=== PATIENT | female | born 1935 | race Caucasian/White ===

== ENCOUNTER 2017-10-31 11:42 | Observation (INO) | payer MEDICARE, MEDICAID ==
--- NOTE | 2017-10-31 13:06 | C.PDOC ---
History Of Present Illness Patient is a 82 y/o F, with gerd, htn, hypercholesterol, pacemakler, on lasix 40mg qd, presenting from PMD office. Patient reports that she went to her PMD today because she has had a cough x 4 days with clear sputum, with worsening orthopnea, generalized myalgias, and was getting regular checkup today when she mentioned worsening orthopnea and intermittent shortness of beath, chest pain, and was sent to ED to evaluate for chf. Reports compliance with medication. Denies fever. Denies abdominal pain, vomiting/nausea, diarrhea/constipation, dysuria. PMD: Dr. Lana Angel ([phone]) Time Seen by Provider: 10/31/17 12:37 Chief Complaint (Nursing): Shortness Of Breath Past Medical History Vital Signs: Last Vital Signs Temp 98.5 F 10/31/17 14:40 Pulse 110 H 10/31/17 14:40 Resp 20 10/31/17 14:40 BP 111/54 L 10/31/17 14:42 Pulse Ox 100 10/31/17 14:40 - Medical History PMH: Gastritis, HTN Surgical History: Pacemaker (lt. sub-clavian) Family History: States: Unknown Family Hx - Social History Hx Alcohol Use: No Hx Substance Use: No - Immunization History Hx Tetanus Toxoid Vaccination: No Hx Influenza Vaccination: Yes Hx Pneumococcal Vaccination: Yes Review Of Systems Except As Marked, All Systems Reviewed And Found Negative. Constitutional: Negative for: Fever, Chills Cardiovascular: Positive for: Orthopnea. Negative for: Chest Pain, Palpitations , Edema, Light Headedness Respiratory: Positive for: Cough, Shortness of Breath, SOB with Excertion. Negative for: Wheezing Gastrointestinal: Negative for: Nausea, Vomiting, Abdominal Pain, Diarrhea, Constipation Musculoskeletal: Negative for: Neck Pain Neurological: Negative for: Weakness, Numbness, Seizures, Altered Mental Status , Headache Physical Exam - Physical Exam Appears: Well, Non-toxic, No Acute Distress, Other (speaking in complete sentences, no tachypnea) Skin: Normal Color, Warm, Dry Head: Atraumatic, Normacephalic Eye(s): bilateral: Normal Inspection, PERRL, EOMI Neck: Supple Chest: Symmetrical Cardiovascular: Rhythm Regular Respiratory: No Rales, No Rhonchi, No Stridor, Wheezing Gastrointestinal/Abdominal: Soft, No Tenderness, No Mass Back: Normal Inspection, No CVA Tenderness Extremity: Normal ROM, No Pedal Edema Neurological/Psych: Oriented x3, Normal Speech Gait: Steady ED Course And Treatment - Laboratory Results Result Diagrams: 10/31/17 13:13 10/31/17 13:13 O2 Sat by Pulse Oximetry: 99 Medical Decision Making Medical Decision Making: Symptoms consistent with viral uri with chf exacerbation. EKG shows paced rhythm at 60bpm. Chest xray shows cardiomegaly but negative for infiltrate or consolidation. Influenza negative. Trop x 1 negative. BNP elevated. Duonebs, aspirin and lasix given. Due to elevated bnp, shortness of breath, with orthopnea and chest pain will transfer to tele observation under Dr. Angel. Disposition - Disposition Disposition: HOSPITALIZED Disposition Time: 13:58 Condition: FAIR - Clinical Impression Clinical Impression: Respiratory tract infection, Chronic congestive heart failure, Orthopnea
[2017-10-31] MEDS ORDERED: Albuterol-Ipratrop 3 mg / 0.5 (3 ml) UD INH STA ×2 (13:14→16:31)
[2017-10-31] MEDS ORDERED: Albuterol-Ipratrop 3 mg / 0.5 (3 ml) UD ONE ×2 (13:23→16:41)
[2017-10-31 13:24] LABS: BASO # 0.1 K/uL (0.0-0.2); BASO % 1.1 % (0.0-2.0); EOS # 0.1 K/uL (0.0-0.7); EOS % 2.1 % (0.0-4.0); HEMATOCRIT 47.6 % (34.0-47.0); LYMPH # 0.8 K/uL (1.0-4.3); LYMPH % 11.8 % (20.0-40.0); MEAN CELL VOLUME 90.1 fL (81.0-99.0); MEAN CORPUSCULAR HEMOGLOBIN 28.3 pg (27.0-31.0); MEAN CORPUSCULAR HGB CONC 31.5 g/dL (33.0-37.0); MEAN PLATELET VOLUME 8.9 fL (7.2-11.7); MONO # 0.7 K/uL (0.0-0.8); MONO % 9.6 % (0.0-10.0); NRBC % 0.1 % (0.0-2.0); RED CELL DISTRIBUTION WIDTH 15.8 % (11.5-14.5)
[2017-10-31] MEDS ORDERED: Albuterol 0.083% Inhal Sol (2.5 mg/3 mL) UD ONE (13:26)
[2017-10-31 13:33] LABS: ALKALINE PHOSPHATASE 61 U/L (38-126); ALT/SGPT 47 U/L (9-52); AST/SGOT 39 U/L (14-36); BILIRUBIN,TOTAL 1.1 mg/dL (0.2-1.3); BLOOD UREA NITROGEN 13 mg/dL (7-17); CARBON DIOXIDE 27 mmol/L (22-30); CHLORIDE 100 mmol/L (98-107); GFR AFRICAN-AMERICAN > 60; GLUCOSE,RANDOM 107 mg/dL (65-105); POTASSIUM 4.1 mmol/L (3.6-5.2); SODIUM 134 mmol/L (132-148); TOTAL PROTEIN 8.9 g/dL (6.3-8.3)
[2017-10-31 13:34] LABS: ALB/GLOB RATIO 0.9 (1.0-2.1)
--- NOTE | 2017-10-31 13:51 | RAD ---
PROCEDURE: CHEST RADIOGRAPH, 1 VIEW HISTORY: SOB COMPARISON: No prior study available for comparison FINDINGS: LUNGS: Clear. PLEURA: No pneumothorax or pleural fluid seen. CARDIOVASCULAR: Heart is markedly enlarged. In situ bipolar pacemaker OSSEOUS STRUCTURES: No significant abnormalities. VISUALIZED UPPER ABDOMEN: Normal. OTHER FINDINGS: None. IMPRESSION: No acute infiltrates. Marked cardiomegaly.
[2017-10-31 14:06] LABS: INR 1.3
--- NOTE | 2017-10-31 18:44 | CP.PCM.HP ---
History of Present Illness - History of Present Illness History of Present Illness: An 82 year old came for evaluation for coughing and shortness of breath. She has been coughing a lot of white sputum since 3 or 4 days ago. Last night she could not lie flat and slept on a chair (orthopnea). She was seen by a doctor at a day care center and prescribed her 500 mg of levaquin and she has been taking it once a day for the last four days. She has a history of pacemaker and CHF. She has had a pacemaker for a found arrhythmia when she was having an operation for right wrist fracture at [facility]. At home she takes 40 mg of lasix and 5 mg of lisinopril. Her other medicines include 20 mg of simvastatin and [address] She denies leg swelling. Present on Admission - Present on Admission Any Indicators Present on Admission: No History of DVT/PE: No Urinary Catheter: No Decubitus Ulcer Present: No Review of Systems - EENT Eyes: absent: Blurred Vision - Cardiovascular Cardiovascular: Orthopnea. absent: Chest Pain - Respiratory Respiratory: Cough, Dyspnea on Exertion, Wheezing - Gastrointestinal Gastrointestinal: absent: Nausea, Vomiting - Genitourinary Genitourinary: absent: Change in Urinary Stream Past Patient History - Past Social History Smoking Status: Never Smoked - CARDIAC Hx Hypertension: Yes Hx Pacemaker: Yes (lt. sub-clavian) - RENAL Hx Renal Failure: Yes - GASTROINTESTINAL Hx Gastritis: Yes - PSYCHIATRIC Hx Substance Use: No - SURGICAL HISTORY Hx Hysterectomy: Yes Other/Comment: Pacemaker insertion,2008 - ANESTHESIA Hx Anesthesia: No Hx Anesthesia Reactions: No Meds Allergies/Adverse Reactions: Allergies Allergy/AdvReac Type Severity Reaction Status Date / Time ibuprofen [From Motrin] Allergy RASH Verified 10/31/17 11:56 Physical Exam - Constitutional Appears: No Acute Distress - Respiratory Exam Respiratory Exam: Clear to Auscultation Bilateral, Rhonchi - Cardiovascular Exam Cardiovascular Exam: REGULAR RHYTHM. absent: Systolic Murmur - GI/Abdominal Exam GI & Abdominal Exam: Normal Bowel Sounds, Soft. absent: Tenderness - Extremities Exam Extremities exam: Positive for: normal inspection. Negative for: pedal edema Results - Vital Signs Recent Vital Signs: Last Vital Signs Temp 97.9 F 10/31/17 18:10 Pulse 60 10/31/17 18:10 Resp 20 10/31/17 18:10 BP 125/71 10/31/17 18:10 Pulse Ox 97 10/31/17 18:10 - Labs Result Diagrams: 11/01/17 06:21 11/01/17 06:21 Labs: Laboratory Results - last 24 hr 10/31/17 10/31/17 10/31/17 12:38 13:13 13:13 WBC 7.0 RBC 5.29 H Hgb 15.0 Hct 47.6 H MCV 90.1 MCH 28.3 MCHC 31.5 L RDW 15.8 H Plt Count 411 H MPV 8.9 Neut % (Auto) 75.4 H Lymph % (Auto) 11.8 L [place] % (Auto) 9.6 Eos % (Auto) 2.1 Baso % (Auto) 1.1 Neut # 5.3 Lymph # 0.8 L [place] # 0.7 Eos # 0.1 Baso # 0.1 PT INR APTT Sodium 134 Potassium 4.1 Chloride 100 Carbon Dioxide 27 Anion Gap 11 BUN 13 Creatinine 0.7 Est GFR ( Amer) > 60 Est GFR (Non-Af Amer) > 60 Random Glucose 107 H Calcium 8.0 L Total Bilirubin 1.1 AST 39 H ALT 47 Alkaline Phosphatase 61 Troponin I 0.0160 NT-Pro-B Natriuret Pep 3420 H Total Protein 8.9 H Albumin 4.1 Globulin 4.8 H Albumin/Globulin Ratio 0.9 L Influenza Typ A,B (EIA) Negative for flu a/b 10/31/17 13:53 WBC RBC Hgb Hct MCV MCH MCHC RDW Plt Count MPV Neut % (Auto) Lymph % (Auto) [place] % (Auto) Eos % (Auto) Baso % (Auto) Neut # Lymph # [place] # Eos # Baso # PT 14.1 H INR 1.3 APTT 40 H Sodium Potassium Chloride Carbon Dioxide Anion Gap BUN Creatinine Est GFR ( Amer) Est GFR (Non-Af Amer) Random Glucose Calcium Total Bilirubin AST ALT Alkaline Phosphatase Troponin I NT-Pro-B Natriuret Pep Total Protein Albumin Globulin Albumin/Globulin Ratio Influenza Typ A,B (EIA) Assessment & Plan - Assessment and Plan (Free Text) Assessment: orthopnea pneumonia asthma R/O CHF exacerbation hypertension cardiomegaly Plan: iv lasix iv Rocephin cardiology consult telemetry observation - Date & Time Date: 10/31/17 Time: 18:47 Decision To Admit - Pt Status Changed To: Hospital Disposition Of: Observation - InPatient: Physician Admission Certification:: observation - . Bed Request Type: Telemetry Admitting Physician: Robert Angel
--- NOTE | 2017-10-31 18:53 | CP.PCM.CON ---
History of Present Illness - History of Present Illness History of Present Illness: 82 year old with reported CHF ? details was admitted with cough, orthopnea and leg edema, on diuretics. no CP, continue diuresis, check echo, prior hx of permanent pacer? Review of Systems - Review of Systems Systems not reviewed;Unavailable: Respiratory Distress, Language Barrier - Constitutional Constitutional: Anorexia, Weakness - EENT Eyes: absent: Discharge Ears: absent: Ear Discharge, Dizziness Nose/Mouth/Throat: absent: Epistaxis, Bleeding Gums - Cardiovascular Cardiovascular: Chest Pain, Dyspnea. absent: Acrocyanosis, Diaphoresis, Leg Edema, Palpitations, Syncope - Respiratory Respiratory: Cough, Dyspnea. absent: Hemoptysis - Gastrointestinal Gastrointestinal: absent: Abdominal Pain, Diarrhea, Vomiting - Genitourinary Genitourinary: absent: Change in Urinary Stream Past Patient History - Past Social History Smoking Status: Never Smoked - CARDIAC Hx Hypertension: Yes Hx Pacemaker: Yes (lt. sub-clavian) - RENAL Hx Renal Failure: Yes - GASTROINTESTINAL Hx Gastritis: Yes - PSYCHIATRIC Hx Substance Use: No - SURGICAL HISTORY Hx Hysterectomy: Yes Other/Comment: Pacemaker insertion,2008 - ANESTHESIA Hx Anesthesia: No Hx Anesthesia Reactions: No Meds Allergies/Adverse Reactions: Allergies Allergy/AdvReac Type Severity Reaction Status Date / Time ibuprofen [From Motrin] Allergy RASH Verified 10/31/17 11:56 - Medications Medications: Current Medications Albuterol/Ipratropium (Duoneb 3 Mg/0.5 Mg (3 Ml) Ud) 3 ml INH RQ6 [facility] Aspirin (Aspirin Chewable) 81 mg PO DAILY [facility] Enoxaparin Sodium (Lovenox) 40 mg SC DAILY [facility] Furosemide (Lasix) 40 mg IVP DAILY [facility] Ceftriaxone Sodium 1 gm/ (Sodium Chloride) 100 mls @ 100 mls/hr IVPB DAILY [facility] Lisinopril (Zestril) 10 mg PO DAILY [facility] Rosuvastatin Calcium (Crestor) 2.5 mg PO HS [facility] Physical Exam - Constitutional Appears: Toxic - Head Exam Head Exam: ATRAUMATIC, NORMOCEPHALIC - Eye Exam Eye Exam: EOMI - ENT Exam ENT Exam: Mucous Membranes Dry - Neck Exam Neck exam: Negative for: Lymphadenopathy, Thyromegaly - Respiratory Exam Respiratory Exam: Prolonged Expiratory Phase, Rhonchi, Wheezes - Cardiovascular Exam Cardiovascular Exam: REGULAR RHYTHM, Systolic Murmur - GI/Abdominal Exam GI & Abdominal Exam: Normal Bowel Sounds. absent: Organomegaly - Rectal Exam Rectal Exam: Deferred - Extremities Exam Extremities exam: Positive for: normal capillary refill. Negative for: calf tenderness - Neurological Exam Neurological exam: Alert - Psychiatric Exam Psychiatric exam: Anxious - Skin Skin Exam: Dry Results - Vital Signs Recent Vital Signs: Last Vital Signs Temp 97.9 F 10/31/17 18:10 Pulse 60 10/31/17 18:10 Resp 20 10/31/17 18:10 BP 125/71 10/31/17 18:10 Pulse Ox 97 10/31/17 18:10 - Labs Result Diagrams: 11/01/17 06:21 11/01/17 06:21 Labs: Laboratory Results - last 24 hr 10/31/17 10/31/17 10/31/17 12:38 13:13 13:13 WBC 7.0 RBC 5.29 H Hgb 15.0 Hct 47.6 H MCV 90.1 MCH 28.3 MCHC 31.5 L RDW 15.8 H Plt Count 411 H MPV 8.9 Neut % (Auto) 75.4 H Lymph % (Auto) 11.8 L [place] % (Auto) 9.6 Eos % (Auto) 2.1 Baso % (Auto) 1.1 Neut # 5.3 Lymph # 0.8 L [place] # 0.7 Eos # 0.1 Baso # 0.1 PT INR APTT Sodium 134 Potassium 4.1 Chloride 100 Carbon Dioxide 27 Anion Gap 11 BUN 13 Creatinine 0.7 Est GFR ( Amer) > 60 Est GFR (Non-Af Amer) > 60 Random Glucose 107 H Calcium 8.0 L Total Bilirubin 1.1 AST 39 H ALT 47 Alkaline Phosphatase 61 Troponin I 0.0160 NT-Pro-B Natriuret Pep 3420 H Total Protein 8.9 H Albumin 4.1 Globulin 4.8 H Albumin/Globulin Ratio 0.9 L Influenza Typ A,B (EIA) Negative for flu a/b 10/31/17 13:53 WBC RBC Hgb Hct MCV MCH MCHC RDW Plt Count MPV Neut % (Auto) Lymph % (Auto) [place] % (Auto) Eos % (Auto) Baso % (Auto) Neut # Lymph # [place] # Eos # Baso # PT 14.1 H INR 1.3 APTT 40 H Sodium Potassium Chloride Carbon Dioxide Anion Gap BUN Creatinine Est GFR ( Amer) Est GFR (Non-Af Amer) Random Glucose Calcium Total Bilirubin AST ALT Alkaline Phosphatase Troponin I NT-Pro-B Natriuret Pep Total Protein Albumin Globulin Albumin/Globulin Ratio Influenza Typ A,B (EIA) Assessment & Plan (1) Chronic congestive heart failure Status: Acute Comment: awaiting w/u observe with echo (2) Respiratory tract infection Status: Acute Comment: probable viral bronchitis
[2017-10-31] MEDS: Albuterol-Ipratrop 3 mg / 0.5 (3 ml) UD INH SCH (19:22)
[2017-10-31] MEDS ORDERED: Aritificial Tears (15ml) OU PRN (21:43)
[2017-10-31] MEDS: Rosuvastatin Calcium 2.5 mg Tab PO SCH (22:44)
[2017-11-01] MEDS: Albuterol-Ipratrop 3 mg / 0.5 (3 ml) UD INH SCH ×4 (02:03→20:04)
[2017-11-01 06:28] LABS: BASO # 0.1 K/uL (0.0-0.2); BASO % 1.4 % (0.0-2.0); EOS # 0.1 K/uL (0.0-0.7); EOS % 1.8 % (0.0-4.0); HEMATOCRIT 46.4 % (34.0-47.0); LYMPH # 1.1 K/uL (1.0-4.3); MEAN CELL VOLUME 88.8 fL (81.0-99.0); MEAN CORPUSCULAR HEMOGLOBIN 28.9 pg (27.0-31.0); MEAN CORPUSCULAR HGB CONC 32.6 g/dL (33.0-37.0); MEAN PLATELET VOLUME 8.7 fL (7.2-11.7); MONO # 0.7 K/uL (0.0-0.8); RED CELL DISTRIBUTION WIDTH 15.8 % (11.5-14.5); WHITE BLOOD COUNT 7.1 K/uL (4.8-10.8)
[2017-11-01 06:55] LABS: ALB/GLOB RATIO 1.3 (1.0-2.1); ALKALINE PHOSPHATASE 66 U/L (38-126); ALT/SGPT 38 U/L (9-52); AST/SGOT 37 U/L (14-36); BILIRUBIN,TOTAL 0.9 mg/dL (0.2-1.3); BLOOD UREA NITROGEN 17 mg/dL (7-17); CALCIUM 8.4 mg/dl (8.6-10.4); CARBON DIOXIDE 28 mmol/L (22-30); CHLORIDE 102 mmol/L (98-107); GFR AFRICAN-AMERICAN > 60; GLUCOSE,RANDOM 96 mg/dL (65-105); POTASSIUM 3.7 mmol/L (3.6-5.2); SODIUM 138 mmol/L (132-148); TOTAL PROTEIN 6.9 g/dL (6.3-8.3)
[2017-11-01] MEDS: Enoxaparin 40 mg Syringe SC SCH (09:32)
--- NOTE | 2017-11-01 15:37 | CP.PCM.PN ---
Subjective - Date & Time of Evaluation Date of Evaluation: 11/01/17 Time of Evaluation: 15:35 - Subjective Subjective: coughing with whitish sputum can not lie flat nasal pain Objective - Vital Signs/Intake and Output Vital Signs (last 24 hours): Temp Pulse Resp BP Pulse Ox 97.5 F L 60 20 149/80 96 11/01/17 07:00 11/01/17 08:00 11/01/17 07:00 11/01/17 09:33 11/01/17 07:00 - Medications Medications: Current Medications Acetaminophen (Tylenol 325mg Tab) 650 mg PO Q6 PRN PRN Reason: Pain, Mild (1-3) Albuterol/Ipratropium (Duoneb 3 Mg/0.5 Mg (3 Ml) Ud) 3 ml INH RQ6 [facility] Last Admin: 11/01/17 13:24 Dose: 3 ml Artificial Tears (Artificial Tears) 0 ml OU Q4H PRN PRN Reason: Dry eyes Last Admin: 10/31/17 22:43 Dose: 1 drop Aspirin (Aspirin Chewable) 81 mg PO DAILY [facility] Last Admin: 11/01/17 09:32 Dose: 81 mg Enoxaparin Sodium (Lovenox) 40 mg SC DAILY [facility] Last Admin: 11/01/17 09:32 Dose: 40 mg Furosemide (Lasix) 40 mg IVP DAILY [facility] Last Admin: 11/01/17 09:33 Dose: 40 mg Ceftriaxone Sodium 1 gm/ (Sodium Chloride) 100 mls @ 100 mls/hr IVPB Q24H [facility] Last Admin: 10/31/17 22:44 Dose: 100 mls/hr Lisinopril (Zestril) 10 mg PO DAILY [facility] Last Admin: 11/01/17 09:32 Dose: 10 mg Rosuvastatin Calcium (Crestor) 2.5 mg PO HS [facility] Last Admin: 10/31/17 22:44 Dose: 2.5 mg - Labs Labs: 11/01/17 06:21 11/01/17 06:21 PT 14.1 SECONDS (9.7-12.2) H 10/31/17 13:53 INR 1.3 10/31/17 13:53 APTT 40 SECONDS (21-34) H 10/31/17 13:53 - Constitutional Appears: No Acute Distress - Respiratory Exam Respiratory Exam: Wheezes - Cardiovascular Exam Cardiovascular Exam: REGULAR RHYTHM. absent: Murmur - GI/Abdominal Exam GI & Abdominal Exam: Soft. absent: Tenderness Assessment and Plan - Assessment and Plan (Free Text) Assessment: chronic CHF R/O asthma, bronchitis patient on iv fluid Plan: get 2D echo result continue respiratory treatment continue iv lasix follow up cardiology consult
[2017-11-01] MEDS: Mupirocin 2% Ointment (NASAL) NAS SCH (19:04)
--- NOTE | 2017-11-01 19:20 | CP.PCM.PN ---
Subjective - Date & Time of Evaluation Date of Evaluation: 11/01/17 Time of Evaluation: 15:00 - Subjective Subjective: still with respiratory distress, HR 60 no fever f/u with echo Objective - Vital Signs/Intake and Output Vital Signs (last 24 hours): Temp Pulse Resp BP Pulse Ox 97.9 F 60 20 123/68 96 11/01/17 16:00 11/01/17 16:00 11/01/17 16:00 11/01/17 16:00 11/01/17 16:00 - Medications Medications: Current Medications Acetaminophen (Tylenol 325mg Tab) 650 mg PO Q6 PRN PRN Reason: Pain, Mild (1-3) Albuterol/Ipratropium (Duoneb 3 Mg/0.5 Mg (3 Ml) Ud) 3 ml INH RQ6 [facility] Last Admin: 11/01/17 13:24 Dose: 3 ml Artificial Tears (Artificial Tears) 0 ml OU Q4H PRN PRN Reason: Dry eyes Last Admin: 10/31/17 22:43 Dose: 1 drop Aspirin (Aspirin Chewable) 81 mg PO DAILY [facility] Last Admin: 11/01/17 09:32 Dose: 81 mg Enoxaparin Sodium (Lovenox) 40 mg SC DAILY [facility] Last Admin: 11/01/17 09:32 Dose: 40 mg Furosemide (Lasix) 40 mg IVP DAILY [facility] Last Admin: 11/01/17 09:33 Dose: 40 mg Ceftriaxone Sodium 1 gm/ (Dextrose) 50 mls @ 100 mls/hr IVPB Q24H [facility] Lisinopril (Zestril) 10 mg PO DAILY [facility] Last Admin: 11/01/17 09:32 Dose: 10 mg Mupirocin (Bactroban 2% Nasal) 0.5 gm LEBRON BID [facility] Last Admin: 11/01/17 19:04 Dose: 0.5 gm Rosuvastatin Calcium (Crestor) 2.5 mg PO HS [facility] Last Admin: 10/31/17 22:44 Dose: 2.5 mg - Labs Labs: 11/01/17 06:21 11/01/17 06:21 PT 14.1 SECONDS (9.7-12.2) H 10/31/17 13:53 INR 1.3 10/31/17 13:53 APTT 40 SECONDS (21-34) H 12/15/17 13:53 - Constitutional Appears: Non-toxic - Head Exam Head Exam: ATRAUMATIC - Eye Exam Eye Exam: EOMI - ENT Exam ENT Exam: Mucous Membranes Moist - Neck Exam Neck Exam: absent: Lymphadenopathy, Thyromegaly - Respiratory Exam Respiratory Exam: Prolonged Expiratory Phase, Rhonchi - Cardiovascular Exam Cardiovascular Exam: REGULAR RHYTHM, Murmur - GI/Abdominal Exam GI & Abdominal Exam: Soft, Normal Bowel Sounds. absent: Organomegaly - Rectal Exam Rectal Exam: Deferred - Extremities Exam Extremities Exam: Normal Capillary Refill. absent: Calf Tenderness - Neurological Exam Neurological Exam: Alert - Psychiatric Exam Psychiatric exam: Normal Mood - Skin Skin Exam: Dry Assessment and Plan (1) Chronic congestive heart failure Status: Acute (2) Respiratory tract infection Status: Acute
--- NOTE | 2017-11-01 21:11 | CARD ---
APPROVED REPORT EXAM: Two-dimensional and M-mode echocardiogram with Doppler and color Doppler. Other Information Quality : GoodRhythm : NSR INDICATION Dyspnea Congestive Heart Failure M-Mode DIMENSIONS RVDd3.88 (2.1-3.2cm)Left Atrium (MM)5.27 (2.5-4.0cm) IVSd1.29 (0.7-1.1cm)Aortic Root2.89 (2.2-3.7cm) LVDd4.76 (4.0-5.6cm)Aortic Cusp Exc.1.64 (1.5-2.0cm) PWd1.29 (0.7-1.1cm)FS (%) 18 % LVDs3.90 (2.0-3.8cm)LVEF (%)37 (>50%) Aortic Valve AoV Peak Qlunfkdt616.9cm/[place] Peak GR.12mmHgAI P 1/2 [id number] Mitral Valve MV E Rrtpqsvi06.7cm/sMV A Fbhqthtu44.1cm/sE/A ratio3.0 TDI E/Lateral E'0.0E/Medial E'0.0 Tricuspid Valve TR Peak [id number]/sTR Peak Gr.[id number] LEFT VENTRICLE The left ventricle is normal size. There is normal left ventricular wall thickness. The systolic function is mildly to moderately impaired. RIGHT VENTRICLE The right ventricle is mildly dilated. ATRIA The left atrium is moderately dilated. The right atrium is moderately dilated. AORTIC VALVE There is trace to mild aortic regurgitation. MITRAL VALVE Mitral regurgitation is mild. TRICUSPID VALVE There is moderate tricuspid regurgitation. <Conclusion> Mild LV systolic dysfunction. Dilated LA. Dilated RA. Dilated RV. Mild AR. Mild MR. Moderate TR.
[2017-11-01] MEDS: Rosuvastatin Calcium 2.5 mg Tab PO SCH (21:21)
[2017-11-02] MEDS: Albuterol-Ipratrop 3 mg / 0.5 (3 ml) UD INH SCH ×5 (01:35→19:23)
[2017-11-02] MEDS: Enoxaparin 40 mg Syringe SC SCH (09:20)
[2017-11-02] MEDS: Mupirocin 2% Ointment (NASAL) NAS SCH ×2 (09:23→19:15)
--- NOTE | 2017-11-02 10:17 | CP.PCM.PN ---
Subjective - Date & Time of Evaluation Date of Evaluation: 11/02/17 Time of Evaluation: 10:15 - Subjective Subjective: still shortness of breath cough with a little thicker sputum can lie on the bed with a little less inclination Objective - Vital Signs/Intake and Output Vital Signs (last 24 hours): Temp Pulse Resp BP Pulse Ox 98.1 F 69 18 130/78 96 11/02/17 07:30 11/02/17 07:30 11/02/17 07:30 11/02/17 09:22 11/02/17 07:30 - Medications Medications: Current Medications Acetaminophen (Tylenol 325mg Tab) 650 mg PO Q6 PRN PRN Reason: Pain, Mild (1-3) Albuterol/Ipratropium (Duoneb 3 Mg/0.5 Mg (3 Ml) Ud) 3 ml INH RQ6 [facility] Last Admin: 11/02/17 07:16 Dose: Not Given Artificial Tears (Artificial Tears) 0 ml OU Q4H PRN PRN Reason: Dry eyes Last Admin: 10/31/17 22:43 Dose: 1 drop Aspirin (Aspirin Chewable) 81 mg PO DAILY [facility] Last Admin: 11/02/17 09:23 Dose: 81 mg Enoxaparin Sodium (Lovenox) 40 mg SC DAILY [facility] Last Admin: 11/02/17 09:20 Dose: 40 mg Furosemide (Lasix) 40 mg IVP DAILY [facility] Last Admin: 11/02/17 09:22 Dose: 40 mg Ceftriaxone Sodium 1 gm/ (Dextrose) 50 mls @ 100 mls/hr IVPB Q24H [facility] Last Admin: 11/01/17 21:36 Dose: 100 mls/hr Lisinopril (Zestril) 10 mg PO DAILY [facility] Last Admin: 11/02/17 09:23 Dose: 10 mg Mupirocin (Bactroban 2% Nasal) 0.5 gm [facility] Last Admin: 11/02/17 09:23 Dose: 0.5 gm Rosuvastatin Calcium (Crestor) 2.5 mg PO HS [facility] Last Admin: 11/01/17 21:21 Dose: 2.5 mg - Labs Labs: 11/01/17 06:21 11/01/17 06:21 PT 14.1 SECONDS (9.7-12.2) H 10/31/17 13:53 INR 1.3 10/31/17 13:53 APTT 40 SECONDS (21-34) H 10/31/17 13:53 - Constitutional Appears: No Acute Distress - Respiratory Exam Respiratory Exam: Wheezes - Cardiovascular Exam Cardiovascular Exam: REGULAR RHYTHM - GI/Abdominal Exam GI & Abdominal Exam: Soft. absent: Tenderness Assessment and Plan - Assessment and Plan (Free Text) Assessment: CHF exacerbation bronchitis 2D echo showed mildly impaired EF Plan: continue iv lasix sputum culture follow up labs in AM as per cardiology
--- NOTE | 2017-11-02 13:22 | CP.PCM.PN ---
Subjective - Date & Time of Evaluation Date of Evaluation: 11/02/17 Time of Evaluation: 12:00 - Subjective Subjective: still with cough sob, echo with ef 50-55% not as reported . mild MR, AI, PAH, mild percardial effusion, stop lasix Objective - Vital Signs/Intake and Output Vital Signs (last 24 hours): Temp Pulse Resp BP Pulse Ox 98.1 F 69 18 130/78 96 11/02/17 07:30 11/02/17 07:30 11/02/17 07:30 11/02/17 09:22 11/02/17 07:30 - Medications Medications: Current Medications Acetaminophen (Tylenol 325mg Tab) 650 mg PO Q6 PRN PRN Reason: Pain, Mild (1-3) Albuterol/Ipratropium (Duoneb 3 Mg/0.5 Mg (3 Ml) Ud) 3 ml INH RQ6 [facility] Last Admin: 11/02/17 07:16 Dose: Not Given Artificial Tears (Artificial Tears) 0 ml OU Q4H PRN PRN Reason: Dry eyes Last Admin: 10/31/17 22:43 Dose: 1 drop Aspirin (Aspirin Chewable) 81 mg PO DAILY [facility] Last Admin: 11/02/17 09:23 Dose: 81 mg Enoxaparin Sodium (Lovenox) 40 mg SC DAILY [facility] Last Admin: 11/02/17 09:20 Dose: 40 mg Furosemide (Lasix) 40 mg IVP DAILY [facility] Last Admin: 11/02/17 09:22 Dose: 40 mg Ceftriaxone Sodium 1 gm/ (Dextrose) 50 mls @ 100 mls/hr IVPB Q24H [facility] Last Admin: 11/01/17 21:36 Dose: 100 mls/hr Lisinopril (Zestril) 10 mg PO DAILY [facility] Last Admin: 11/02/17 09:23 Dose: 10 mg Mupirocin (Bactroban 2% Nasal) 0.5 gm [place]BRON BID [facility] Last Admin: 11/02/17 09:23 Dose: 0.5 gm Rosuvastatin Calcium (Crestor) 2.5 mg PO HS [facility] Last Admin: 11/01/17 21:21 Dose: 2.5 mg - Labs Labs: 11/01/17 06:21 11/01/17 06:21 PT 14.1 SECONDS (9.7-12.2) H 10/31/17 13:53 INR 1.3 10/31/17 13:53 APTT 40 SECONDS (21-34) H 10/31/17 13:53 - Constitutional Appears: Toxic - Head Exam Head Exam: ATRAUMATIC - Eye Exam Eye Exam: EOMI - ENT Exam ENT Exam: Mucous Membranes Dry - Neck Exam Neck Exam: absent: Lymphadenopathy, Thyromegaly - Respiratory Exam Respiratory Exam: Prolonged Expiratory Phase, Rhonchi - Cardiovascular Exam Cardiovascular Exam: REGULAR RHYTHM, Murmur - GI/Abdominal Exam GI & Abdominal Exam: Soft, Normal Bowel Sounds. absent: Organomegaly - Rectal Exam Rectal Exam: Deferred - Extremities Exam Extremities Exam: Normal Capillary Refill. absent: Calf Tenderness - Neurological Exam Neurological Exam: Alert - Psychiatric Exam Psychiatric exam: Anxious - Skin Skin Exam: Dry Assessment and Plan (1) Chronic congestive heart failure Status: Acute (2) Respiratory tract infection Status: Acute (3) Dehydration Assessment & Plan: stop lasix Status: Acute
[2017-11-02] MEDS ORDERED: Pantoprazole 40 mg EC Tab PO STA (16:27)
[2017-11-02] MEDS: Rosuvastatin Calcium 2.5 mg Tab PO SCH (21:57)
[2017-11-03 01:17] VITALS: RESP 20
[2017-11-03] MEDS: Albuterol-Ipratrop 3 mg / 0.5 (3 ml) UD INH SCH ×4 (01:40→19:24)
[2017-11-03 07:02] LABS: BASO # 0.1 K/uL (0.0-0.2); BASO % 1.3 % (0.0-2.0); EOS # 0.2 K/uL (0.0-0.7); EOS % 2.8 % (0.0-4.0); HEMATOCRIT 48.4 % (34.0-47.0); LYMPH # 1.5 K/uL (1.0-4.3); LYMPH % 19.9 % (20.0-40.0); MEAN CORPUSCULAR HEMOGLOBIN 29.3 pg (27.0-31.0); MEAN PLATELET VOLUME 8.7 fL (7.2-11.7); MONO # 0.7 K/uL (0.0-0.8); MONO % 8.8 % (0.0-10.0); RED CELL DISTRIBUTION WIDTH 15.4 % (11.5-14.5); WHITE BLOOD COUNT 7.7 K/uL (4.8-10.8)
[2017-11-03 07:37] LABS: BLOOD UREA NITROGEN 24 mg/dL (7-17); CALCIUM 8.2 mg/dl (8.6-10.4); CARBON DIOXIDE 28 mmol/L (22-30); CHLORIDE 100 mmol/L (98-107); GFR AFRICAN-AMERICAN > 60; GLUCOSE,RANDOM 127 mg/dL (65-105); POTASSIUM 3.7 mmol/L (3.6-5.2); SODIUM 136 mmol/L (132-148)
[2017-11-03] MEDS ORDERED: Pantoprazole 40 mg EC Tab PO SCH (10:00)
[2017-11-03] MEDS: Enoxaparin 40 mg Syringe SC SCH (10:38)
[2017-11-03] MEDS: Mupirocin 2% Ointment (NASAL) NAS SCH (10:38)
[2017-11-03 17:16] VITALS: BP 127/73; PULSE 60; TEMP 97.4; O2SAT 98
--- NOTE | 2017-11-03 18:26 | CP.PCM.PN ---
Subjective - Date & Time of Evaluation Date of Evaluation: 11/03/17 Time of Evaluation: 18:24 - Subjective Subjective: still coughing can lie down better afebrile Objective - Vital Signs/Intake and Output Vital Signs (last 24 hours): Temp Pulse Resp BP Pulse Ox 97.4 F L 60 20 127/73 98 11/03/17 17:15 11/03/17 17:15 11/03/17 17:15 11/03/17 17:15 11/03/17 17:15 Intake and Output: 11/03/17 11/03/17 06:59 18:59 Intake Total 118 400 Balance 118 400 - Medications Medications: Current Medications Acetaminophen (Tylenol 325mg Tab) 650 mg PO Q6 PRN PRN Reason: Pain, Mild (1-3) Albuterol/Ipratropium (Duoneb 3 Mg/0.5 Mg (3 Ml) Ud) 3 ml INH RQ6 [facility] Last Admin: 11/03/17 13:20 Dose: 3 ml Artificial Tears (Artificial Tears) 0 ml OU Q4H PRN PRN Reason: Dry eyes Last Admin: 10/31/17 22:43 Dose: 1 drop Aspirin (Aspirin Chewable) 81 mg PO DAILY [facility] Last Admin: 11/03/17 10:38 Dose: 81 mg Enoxaparin Sodium (Lovenox) 40 mg SC DAILY [facility] Last Admin: 11/03/17 10:38 Dose: 40 mg Ceftriaxone Sodium 1 gm/ (Dextrose) 100 mls @ 100 mls/hr IVPB Q24H [facility] Lisinopril (Zestril) 10 mg PO DAILY [facility] Last Admin: 11/03/17 10:38 Dose: 10 mg Mupirocin (Bactroban 2% Nasal) 0.5 gm LEBRON BID [facility] Last Admin: 11/03/17 10:38 Dose: 0.5 gm Pantoprazole Sodium (Protonix Ec Tab) 40 mg PO DAILY [facility] Last Admin: 11/03/17 10:37 Dose: 40 mg Rosuvastatin Calcium (Crestor) 2.5 mg PO HS [facility] Last Admin: 11/02/17 21:57 Dose: 2.5 mg - Labs Labs: 11/03/17 06:47 11/03/17 06:47 PT 14.1 SECONDS (9.7-12.2) H 10/31/17 13:53 INR 1.3 10/31/17 13:53 APTT 40 SECONDS (21-34) H 10/31/17 13:53 - Constitutional Appears: No Acute Distress - Respiratory Exam Respiratory Exam: Clear to Ausculation Bilateral, Wheezes (bilateral). absent: Rales - Cardiovascular Exam Cardiovascular Exam: REGULAR RHYTHM. absent: Murmur - GI/Abdominal Exam GI & Abdominal Exam: Soft. absent: Tenderness Assessment and Plan - Assessment and Plan (Free Text) Assessment: CHF bronchitis Plan: as per cardiology, D/C lasix discharge patient home today finish levaquin 500 mg po once daily for three days
--- NOTE | 2017-11-03 18:36 | CP.PCM.PN ---
Subjective - Date & Time of Evaluation Date of Evaluation: 11/03/17 Time of Evaluation: 16:00 - Subjective Subjective: minimal improvement observe Objective - Vital Signs/Intake and Output Vital Signs (last 24 hours): Temp Pulse Resp BP Pulse Ox 97.4 F L 60 20 127/73 98 11/03/17 17:15 11/03/17 17:15 11/03/17 17:15 11/03/17 17:15 11/03/17 17:15 Intake and Output: 11/03/17 11/03/17 06:59 18:59 Intake Total 118 400 Balance 118 400 - Medications Medications: Current Medications Acetaminophen (Tylenol 325mg Tab) 650 mg PO Q6 PRN PRN Reason: Pain, Mild (1-3) Albuterol/Ipratropium (Duoneb 3 Mg/0.5 Mg (3 Ml) Ud) 3 ml INH RQ6 [facility] Last Admin: 11/03/17 13:20 Dose: 3 ml Artificial Tears (Artificial Tears) 0 ml OU Q4H PRN PRN Reason: Dry eyes Last Admin: 10/31/17 22:43 Dose: 1 drop Aspirin (Aspirin Chewable) 81 mg PO DAILY [facility] Last Admin: 11/03/17 10:38 Dose: 81 mg Enoxaparin Sodium (Lovenox) 40 mg SC DAILY [facility] Last Admin: 11/03/17 10:38 Dose: 40 mg Ceftriaxone Sodium 1 gm/ (Dextrose) 100 mls @ 100 mls/hr IVPB Q24H [facility] Lisinopril (Zestril) 10 mg PO DAILY [facility] Last Admin: 11/03/17 10:38 Dose: 10 mg Mupirocin (Bactroban 2% Nasal) 0.5 gm LEBRON BID [facility] Last Admin: 11/03/17 10:38 Dose: 0.5 gm Pantoprazole Sodium (Protonix Ec Tab) 40 mg PO DAILY [facility] Last Admin: 11/03/17 10:37 Dose: 40 mg Rosuvastatin Calcium (Crestor) 2.5 mg PO HS [facility] Last Admin: 11/02/17 21:57 Dose: 2.5 mg - Labs Labs: 11/03/17 06:47 11/03/17 06:47 PT 14.1 SECONDS (9.7-12.2) H 10/31/17 13:53 INR 1.3 10/31/17 13:53 APTT 40 SECONDS (21-34) H 10/31/17 13:53 - Constitutional Appears: Non-toxic - Head Exam Head Exam: ATRAUMATIC - Eye Exam Eye Exam: EOMI - ENT Exam ENT Exam: Mucous Membranes Moist - Neck Exam Neck Exam: absent: Lymphadenopathy - Respiratory Exam Respiratory Exam: Clear to Ausculation Bilateral, Prolonged Expiratory Phase. absent: Rhonchi - Cardiovascular Exam Cardiovascular Exam: REGULAR RHYTHM, Murmur - GI/Abdominal Exam GI & Abdominal Exam: Normal Bowel Sounds. absent: Organomegaly - Rectal Exam Rectal Exam: Deferred - Extremities Exam Extremities Exam: Normal Capillary Refill. absent: Calf Tenderness - Neurological Exam Neurological Exam: Alert - Psychiatric Exam Psychiatric exam: Anxious - Skin Skin Exam: Dry Assessment and Plan (1) Chronic congestive heart failure Status: Acute (2) Respiratory tract infection Status: Acute (3) Dehydration Status: Acute
--- NOTE | 2017-11-03 22:25 | CARD ---
APPROVED REPORT EKG Measurement Heart [id number] OR 190P [id number] <Conclusion> AV dual-paced rhythm with occasional ventricular-paced complexes Abnormal ECG
--- NOTE | 2017-11-04 08:35 | PCM.HF ---
Heart Failure Core Measure - Heart Failure Ejection Fraction: Less Than 40 % CHEIKH Inhibitor Prescribed: Yes Beta-Katie Prescribed: None Contraindication/Reason for not providing: episodes of bradycardia Angiotensin II Receptor Katie Prescribed: No Contraindication/Reason for not providing: on cheikh AnticoagulationTherapy for Atrial Fibrillation/Atrialflutter: No Contraindication/Reason for not providing: no afib Aldosterone Antagonist Prescribed: No Contraindication/Reason for not providing: has ppm Hydralazine Nitrate Prescribed: No Contraindication/Reason for not providing: has ppm Implantable Cardioverter Defibrillator Therapy: Yes Cardiac Resynchronization Therapy Prescribed: No Contraindication/Reason for not providing: has ppm - Follow up Will be discharged to: Home Follow Up Date (must be within 7 days from discharge): 11/06/17 Follow Up Time: 09:00
== END 2017-11-03 21:00 | disposition home or self-care (01) ==
LOC: C.ER 11:42 → C.9E 14:06 → C.6T 16:58
PROVIDERS: ADMIT Internal Medicine; ATTEND Internal Medicine
DX: I11.0 Hypertensive heart disease with heart failure (principal); I50.9 Heart failure, unspecified; J06.9 Acute upper respiratory infection, unspecified; J40 Bronchitis, not specified as acute or chronic; J45.909 Unspecified asthma, uncomplicated; E86.0 Dehydration
CPT/HCPCS: 31720; 36415; 71010; 80048; 80053; 83880; 84484; 85025; 85610; 85730; 87040; 87070; 87804; 93005; 93306; 94640; 94760; 96374; 99285; G0378; J0696; J1650; J1940